=== PATIENT | female | born 1950 | race Caucasian/White ===

== ENCOUNTER 2016-05-10 14:01 | Inpatient (IN) | payer MEDICARE, OTHER ==
[~2016-05-10] VITALS: Ht 167.6 cm; Wt 86.4 kg
[~2016-05-10 14:01] MED LIST: BUPR150T6 PO; GABA300C16 PO; LEVO100T11 PO; LORA1TAB PO; METO100T13 PO; NORC 5-325 PO; SMV40T PO
[2016-05-10] MEDS ORDERED: SOD CHLORIDE 0.9% 1,000 ML IV STA (14:45)
[2016-05-10] MEDS ORDERED: ATOR40TA68 PO (15:05)
[2016-05-10] MEDS ORDERED: HYDR-905 PO (15:05)
[2016-05-10] MEDS ORDERED: VENL150C94 PO (15:05)
[2016-05-10] MEDS ORDERED: AMLO5TAB4 PO (15:06)
[2016-05-10] MEDS ORDERED: ZOLP10TA PO (15:06)
[2016-05-10] MEDS ORDERED: LORA1TAB PO (15:07)
[2016-05-10 15:28] LABS: BASOPHILS % 0.3 % (0.0-2.0); EOSINOPHILS % 0.3 % (0.0-7.0); HEMATOCRIT 42.5 % (37.0-47.0); HEMOGLOBIN 14.3 g/dl (12.0-16.0); LYMPHOCYTES # 0.9 10^3/ul (0.8-2.9); LYMPHOCYTES % 9.4 % (15.0-51.0); MEAN CORPUSCULAR HEMOGLOBIN 32.9 pg (29.0-33.0); MEAN CORPUSCULAR HGB CONC 33.6 g/dl (32.0-37.0); MEAN CORPUSCULAR VOLUME 97.9 fl (82.0-101.0); MEAN PLATELET VOLUME 7.5 fl (7.4-10.4); MONOCYTE # 0.6 10^3/ul (0.3-0.9); NEUTROPHIL # 8.4 10^3/ul (1.6-7.5); PLATELET COUNT 303 10^3/UL (140-440); RED BLOOD COUNT 4.34 10^6/ul (4.20-5.40); RED CELL DISTRIBUTION WIDTH 17.2 % (11.5-14.5)
[2016-05-10 15:29] LABS: CONDITION 1; LH ANALYZER COMMENTS 1
[2016-05-10 15:37] LABS: CHLORIDE 102 mmol/L (97-110); POTASSIUM 4.1 mmol/L (3.5-5.1); SODIUM 143 mmol/L (135-144)
[2016-05-10 15:38] LABS: ADD UMIC YES; URINE BILIRUBIN (Dip) NEGATIVE (NEGATIVE); URINE BLOOD (Dip) NEGATIVE (NEGATIVE); URINE COLOR LT. YELLOW (YELLOW); URINE GLUCOSE (Dip) NEGATIVE (NEGATIVE); URINE KETONES (Dip) NEGATIVE (NEGATIVE); URINE LEUKOCYTE ESTERASE (Dip) TRACE (NEGATIVE); URINE NITRITE (Dip) NEGATIVE (NEGATIVE); URINE TOTAL PROTEIN (Dip) 2+ (NEGATIVE); URINE UROBILINOGEN (Dip) 0.2 E.U./dL (0.1-1.0)
[2016-05-10 15:39] LABS: CREATININE 0.68 mg/dl (0.44-1.00)
[2016-05-10 15:40] LABS: ANION GAP 22 (8-16); BLOOD UREA NITROGEN 13 mg/dl (7-20); CALCIUM 10.4 mg/dl (8.4-10.2); CARBON DIOXIDE 23 mmol/L (21-31); GLUCOSE 145 mg/dl (70-220)
[2016-05-10 15:50] LABS: URINE RBCS 0-2 /HPF (0)
[2016-05-10 15:51] LABS: BACTERIA,URINE RARE; SQUAMOUS EPITHELIAL CELL,UR FEW
[2016-05-10 15:53] LABS: TROPONIN-I < 0.012 ng/ml (0.00-0.12)
[2016-05-10] MEDS ORDERED: ONDANSETRON 4 MG INJ IV PRN (17:30)
[2016-05-10] MEDS ORDERED: ACETAMINOPHEN 325 MG TAB PO PRN (17:30)
--- NOTE | 2016-05-10 17:30 | ERA ---
ER Documentation Chief Complaint Date/Time DATE: 05/10/16 TIME: 17:24 Chief Complaint BIB RA FOR EVAL OF LAC TO TOUNGE. FROM HOME, MODERATE AMOUNT OF BLEEDING HPI 66-year-old female with a history of hypertension, depression, and hypothyroidism brought in by ambulance after having a syncopal event at home. Her sister, she heard a thump. She went into the room and the patient had fallen off of her bed onto her face. She was unresponsive. No seizure activity was noted. She did hear gurgling. There was blood coming out of her mouth. When the ambulance arrived, the patient woke up but was not answering questions. The patient does not remember what happened. She states she was laying down in bed and watching TV, which is the last thing she remembers. She denies any current chest pain or shortness of breath. She states that she has some pain in her mouth, but no other symptoms. She does endorse frequent falling recently. She fell about a week ago and hit the back of her head. She is not sure why she is falling. She complains of right leg pain secondary to previous fall. No focal weakness or numbness. No headache, vision disturbance , chest pain, shortness of breath, abdominal pain, dysuria. ROS All systems reviewed and are negative except as per history of present illness. Medications Home Meds Reported Medications Lorazepam* (Lorazepam*) 1 Mg Tablet, 1 MG PO TID Y for ANXIETY, #60 TAB 05/10/16 Amlodipine Besylate* (Norvasc*) 5 Mg Tablet, 5 MG PO DAILY, TAB 05/10/16 Zolpidem Tartrate* (Ambien*) 10 Mg Tablet, 10 MG PO QHS Y for INSOMNIA, TAB 05/10/16 Atorvastatin* (Atorvastatin*) 40 Mg Tablet, 40 MG PO QHS, #30 TAB 05/10/16 Venlafaxine Hcl* (Venlafaxine Hcl ER*) 150 Mg Cap.er.24h, 150 MG PO DAILY, CAP 05/10/16 Hydrocodone/Acetaminophen ([place] 7.5-325 Tablet) 1 Each Tablet, 1 EACH PO Q6 Y for PAIN, TAB 05/10/16 Metoprolol Succinate* (Toprol XL*) 100 Mg Tab.sr.24h, 100 MG PO DAILY 05/30/13 Levothyroxine Sodium (LEVOTHROID) 100 Mcg Tablet, 88 MCG PO DAILY 05/27/13 Gabapentin* (Gabapentin*) 300 Mg Capsule, 300 MG PO TID 05/27/13 Discontinued Reported Medications Hydrocodone Bit-Acetaminophen* ([place]*) 1 Tab Tab, 1 TAB PO Q4 Y 05/30/13 Bupropion Hcl* (Bupropion XL*) 150 Mg Tab.er.24h, 300 MG PO DAILY 05/30/13 Simvastatin (Simvastatin) 40 Mg Tablet, 40 MG PO HS 05/27/13 Lorazepam* (Lorazepam*) 1 Mg Tablet, 1 MG PO BID Y NEEDED 05/27/13 Allergies Allergies: Coded Allergies: aspirin (Verified Allergy, Intermediate, 05/10/16) naproxen (Verified Allergy, Intermediate, 05/10/16) Penicillins (Verified Allergy, Unknown, 05/10/16) PMhx/Soc History of Surgery: Yes (thyroidectomy,hysterectomy,back sx,kidney stone) Hx Neurological Disorder: Yes Hx Respiratory Disorders: No Hx Cardiac Disorders: Yes (HYPERTENSION) Hx Psychiatric Problems: Yes (DEPRESSION, ANXIETY) Hx Miscellaneous Medical Probl: Yes (CLL,fibromyalgia,depression,anxiety, hypothyroidism,hyperlilidemia,htn,OA) Hx Alcohol Use: No (NO) Hx Substance Use: No Hx Tobacco Use: No Smoking Status: Never smoker FmHx Family History: coronary disease Physical Exam Vitals Vital Signs Date Time Temp Pulse Resp B/P Pulse Ox O2 Delivery O2 Flow Rate FiO2 05/10/16 14:43 115 17 131/103 98 Room Air 05/10/16 14:13 98.4 133 18 133/70 100 Physical Exam Const: No apparent distress, blood noted around mouth Head: Atraumatic Eyes: Normal Conjunctiva, PERRL, EOMI, no nystagmus ENT: Normal External Ears, Nose and Mouth., upper gum anteriorly with laceration, right upper central incisor loose, minimal surrounding bleeding, tongue without injury Neck: Full range of motion. No meningismus. No C-spine tenderness to palpation Resp: Clear to auscultation bilaterally Cardio: Regular rate and rhythm, no murmurs Abd: Soft, non tender, non distended. Normal bowel sounds Skin: No petechiae or rashes. Old ecchymoses noted on right lower extremity Back: No midline or flank tenderness Ext: No cyanosis, or edema. Old ecchymoses on right lower extremity, no deformity Neur: Awake and alert to self and place, unable to tell me the month and the year, strength and sensations intact in all 4 extremities Psych: Normal Mood and Affect Result Diagram: 05/10/16 1508 05/10/16 1508 Results 24 hrs Laboratory Tests Test 05/10/16 15:08 Anion Gap 22 Basophils # 0.010^3/ul Basophils % 0.3% Blood Morphology Comment Blood Urea Nitrogen 13mg/dl Calcium Level 10.4mg/dl Carbon Dioxide Level 23mmol/L Chloride Level 102mmol/L Creatinine 0.68mg/dl Eosinophils # 0.010^3/ul Eosinophils % 0.3% Glucose Level 145mg/dl Hematocrit 42.5% Hemoglobin 14.3g/dl Lymphocytes # 0.910^3/ul Lymphocytes % 9.4% Mean Corpuscular Hemoglobin 32.9pg Mean Corpuscular Hemoglobin Concent 33.6g/dl Mean Corpuscular Volume 97.9fl Mean Platelet Volume 7.5fl Monocytes # 0.610^3/ul Monocytes % 6.0% Neutrophils # 8.410^3/ul Neutrophils % 84.0% Nucleated Red Blood Cells # 0.010^3/ul Nucleated Red Blood Cells % 0.0/100WBC Platelet Count 59226^3/UL Potassium Level 4.1mmol/L Red Blood Count 4.3410^6/ul Red Cell Distribution Width 17.2% Sodium Level 143mmol/L Troponin I < 0.012ng/ml Urine Bacteria RARE Urine Bilirubin NEGATIVE Urine Clarity CLEAR Urine Color LT. YELLOW Urine Glucose NEGATIVE% Urine Hemoglobin NEGATIVE Urine Ketones NEGATIVE Urine Leukocyte Esterase TRACE Urine Microscopic RBC 0-2/HPF Urine Microscopic WBC 5-10/HPF Urine Nitrite NEGATIVE Urine Specific [place] 1.025 Urine Squamous Epithelial Cells FEW Urine Total Protein 2+ Urine Urobilinogen 0.2 E.U./dL Urine pH 7.0 White Blood Count 10.010^3/ul Current Medications Medications (Trade) Dose Ordered Sig/Tasneem Route PRN Reason Start Time Stop Time Status Last Admin Dose Admin Sodium Chloride (NS) 1,000 ml @ 1,000 mls/hr Q1H STAT IV 05/10/16 14:45 05/10/16 15:44 DC 05/10/16 16:07 Ondansetron HCl (Zofran Inj) 4 mg ER BRIDGE PRN IV NAUSEA AND/OR VOMITING 05/10/16 17:30 05/11/16 17:29 Acetaminophen (Tylenol Tab) 650 mg ER BRIDGE PRN PO MILD PAIN/FEVER 05/10/16 17:30 05/11/16 17:29 Procedures/MDM EKG: Rate/Rhythm: Sinus tachycardia at 109 bpm QRS, ST, T-waves: Normal intervals, no changes consistent w/ acute ischemia Impression: No evidence of ischemia or arrhythmia Patient is presenting after a possible syncopal event versus seizure. Vitals were notable for tachycardia, likely secondary to dehydration, however no other vital sign abnormalities. EKG did not show acute ischemia or arrhythmia. Labs did not show any significant abnormalities. She does have a loose tooth on my exam, but no evidence of serious facial fracture. The CT of her head did not show any acute abnormalities per radiology. The CT of her face did not show any fracture in the area of her loose tooth. Given the patient's frequent falls recently and the unknown etiology of her fall today, the patient will need further inpatient monitoring and workup. Accepting Care Team: Current data and ongoing care discussed. Time: Time of admission Primary Provider: lobito Consulting: none Outstanding Data: none Departure Diagnosis: Primary Impression: Syncope and collapse Additional Impression: Tooth injury Qualified Code: S09.93XA - Tooth injury, initial encounter Condition: JOEL Ventura MD May 10, 2016 17:30
[2016-05-10] MEDS ORDERED: HYDROCODONE/APAP (5/325) TAB PO ONE (18:30)
--- NOTE | 2016-05-10 19:18 | RADRPT ---
PROCEDURE: CT Head without. CLINICAL INDICATION: 66-year-old female with syncope. TECHNIQUE: The study was performed utilizing a multi-slice, multidetector CT scanner. Direct spira l 1 mm axial sections were obtained through the head without the use of intravenous contrast materia l. Coronal and sagittal reformats were obtained. The images were reviewed on a PACS workstation. RADIATION DOSE: CTDIvol: 44.8 mGyDLP: 720.2 mGy-cm COMPARISON: 05/27/2013, MRI brain 05/27/2013 FINDINGS: There is no intracranial hemorrhage, extra-axial fluid collection, mass lesion, midline shift or hyd rocephalus. There is mild prominence of the cerebral sulci, lateral and third ventricles. There is mild periventricular and subcortical white matter hypodensity. There is mild arteriosclerotic calc ification of the parasellar internal carotid arteries. The elena-white matter differentiation is pre served. The basal cisterns are patent. The midline structures are intact. There is pneumatization bilateral petrous apices without evidence of inflammatory changes, normal variant. The orbits, jacinto varium and extracranial soft tissues are normal in appearance. The visualized paranasal sinuses, mas toid air cells and middle ear cavities are normally aerated. There is mild hyperostosis frontalis in terna, normal variant. IMPRESSION: 1. No acute intracranial abnormality. No intracranial hemorrhage, extra-axial fluid collection, ma ss lesion or hydrocephalous. 2. Stable mild peripheral and central cerebral volume loss. 3. Stable mild periventricular and subcortical white matter hypodensity, likely related to chronic microangiopathic changes. RPTAT: HGAS .Levon Spencer MD, Date Time Electronically viewed and signed by .Levon Spencer MD, on 05/10/2016 17:03 .S/
--- NOTE | 2016-05-10 19:18 | RADRPT ---
PROCEDURE: CT Maxillofacial without. CLINICAL INDICATION: Syncope. TECHNIQUE: The study was performed utilizing a multi-slice, multidetector CT scanner. Direct spira l 1 mm axial sections were obtained through the maxillofacial region without the use of intravenous contrast material. Coronal and sagittal as well as maximal intensity projection reformations were o btained. The images were reviewed on a PACS workstation. RADIATION DOSE: CTDIvol: 29.5 mGyDLP: 591.3 mGy-cm COMPARISON: No prior studies are available for comparison. FINDINGS: The maxilla, zygomatic arches and ethmoid bone intact. There is possible widening of the bilateral nasal maxillary sutures, concerning for fracture. The paranasal sinuses are normally aerated. The nasal spine of the maxilla is intact. The visualized mandible is normal in appearance. There is no evidence of facial bone fracture. The soft tissues are unremarkable. Limited visualization of the intracranial contents is normal in appearance. The nasopharynx and oropharynx are normal in appear ance. IMPRESSION: 1. Possible widening of the bilateral nasal maxillary sutures, concerning for possible bilateral na tal bone fractures. 2. Otherwise, normal CT of the maxillofacial region. No additional fractures are seen. RPTAT: HGAS .Levon Spencer MD, Date Time Electronically viewed and signed by .Levon Spencer MD, on 05/10/2016 17:05 .S/
--- NOTE | 2016-05-10 19:19 | RADRPT ---
PROCEDURE: XR Chest. CLINICAL INDICATION: Dyspnea TECHNIQUE: Single frontal chest x-ray. COMPARISON: 05/27/2013 FINDINGS: No acute infiltrate, pleural effusion or pneumothorax is identified. Cardiomediastinal silhouette i s within normal limits. The osseous structures are unremarkable. IMPRESSION: 1. Unremarkable chest x-ray. RPTAT: QQ .Kirk Norris MD, MD Date Time Electronically viewed and signed by .Kirk Norris MD, on 05/10/2016 15:37 .R/
[2016-05-10 19:20] VITALS: BP 142/76; PULSE 112; RESP 20
[2016-05-10] MEDS ORDERED: LORAZEPAM 2 MG INJ IV ONE (19:45)
[2016-05-10 19:50] VITALS: BP 200/99; PULSE 120; RESP 20
[2016-05-10] MEDS ORDERED: LORAZEPAM 2 MG INJ ONE (19:54)
[2016-05-10] MEDS ORDERED: SOD CHLORIDE 0.9% 500 ML IV ONE (20:00)
[2016-05-10] MEDS ORDERED: LEVETIRACETAM IV 1,000 MG in DEXTROSE 5% 100 ML IVPB ONE (20:00)
[2016-05-10 20:17] VITALS: PULSE 140
[2016-05-10 20:30] VITALS: Ht 167.6 cm; Wt 86.4 kg
[2016-05-10] MEDS ORDERED: LORAZEPAM 2 MG INJ IV PRN (20:30)
[2016-05-10] MEDS ORDERED: LEVETIRACETAM IV 500 MG in DEXTROSE 5% 100 ML IVPB SCH (21:00)
[2016-05-10] MEDS ORDERED: LEVETIRACETAM IV 1,000 MG in SOD CHLORIDE 0.9% 100 ML IVPB ONE (21:00)
[2016-05-10] MEDS: D5W-0.45 NACL + KCL 10 MEQ 1,000 ML IV SCH (21:59)
[2016-05-10 23:14] VITALS: BP 147/80; RESP 20
[2016-05-11] VITALS (13 sets, daily range): BP systolic 122–167; BP diastolic 78–106; PULSE 72–95; RESP 16–21
[2016-05-11] MEDS: LEVOTHYROXINE 88 MCG TAB PO SCH (05:50)
[2016-05-11 06:25] LABS: EOSINOPHILS % 0.2 % (0.0-7.0); HEMATOCRIT 37.3 % (37.0-47.0); HEMOGLOBIN 12.4 g/dl (12.0-16.0); LYMPHOCYTES # 1.3 10^3/ul (0.8-2.9); LYMPHOCYTES % 13.2 % (15.0-51.0); MEAN CORPUSCULAR HEMOGLOBIN 32.8 pg (29.0-33.0); MEAN CORPUSCULAR HGB CONC 33.3 g/dl (32.0-37.0); MEAN CORPUSCULAR VOLUME 98.6 fl (82.0-101.0); MEAN PLATELET VOLUME 7.6 fl (7.4-10.4); MONOCYTE # 0.8 10^3/ul (0.3-0.9); MONOCYTES % 8.3 % (0.0-11.0); NEUTROPHIL # 7.5 10^3/ul (1.6-7.5); NEUTROPHILS % 78.3 % (39.0-77.0); PLATELET COUNT 286 10^3/UL (140-440); RED BLOOD COUNT 3.79 10^6/ul (4.20-5.40); RED CELL DISTRIBUTION WIDTH 16.7 % (11.5-14.5); UNCORRECTED WBC 9.6 10^3/ul (4.8-10.8); WHITE BLOOD COUNT 9.6 10^3/ul (4.8-10.8)
[2016-05-11] MEDS: D5W-0.45 NACL + KCL 10 MEQ 1,000 ML IV SCH ×2 (06:30→17:28)
[2016-05-11 06:33] LABS: CONDITION 1; LH ANALYZER COMMENTS 1
[2016-05-11 06:42] LABS: ALBUMIN 4.2 g/dl (3.3-4.9)
[2016-05-11 06:43] LABS: POTASSIUM 3.9 mmol/L (3.5-5.1)
[2016-05-11 06:45] LABS: ALBUMIN/GLOBULIN RATIO 1.44; BILIRUBIN,INDIRECT 0.5 mg/dl (0-1.1); BILIRUBIN,TOTAL 0.5 mg/dl (0.2-1.3); CREATININE 0.67 mg/dl (0.44-1.00); TOTAL PROTEIN 7.1 g/dl (6.1-8.1)
[2016-05-11 06:46] LABS: CALCIUM 9.6 mg/dl (8.4-10.2)
[2016-05-11 07:11] LABS: THYROID STIMULATING HORMONE 2.63 MIU/L (0.465-4.680)
[2016-05-11] MEDS: AMLODIPINE 5 MG TAB PO SCH (08:57)
[2016-05-11] MEDS ORDERED: METOPROLOL (XL) 50 MG TAB PO SCH (09:00)
[2016-05-11] MEDS: LEVETIRACETAM IV 500 MG in DEXTROSE 5% 100 ML IVPB SCH ×2 (10:15→20:59)
[2016-05-11] MEDS ORDERED: METOPROLOL (XL) 50 MG TAB PO ONE (13:30)
[2016-05-11] MEDS: HYDROCODONE/APAP (7.5/325) TAB PO PRN ×2 (14:42→17:37)
--- NOTE | 2016-05-11 17:27 | HP ---
DATE OF ADMISSION: 05/10/2016 CHIEF COMPLAINT: Altered mental status. HISTORY OF PRESENT ILLNESS: The patient is a 66-year-old female with multiple medical pro blems including anxiety, additional history of seizures, around 20 years old, has noted some questio nable seizure activity a few weeks ago. The patient has been out of her Ativan, noted some shaking of the body diffusely, which has been brief. No loss of consciousness. On the day of admission, th e patient fell out of bed reportedly heard by her sister. The patient with loss of consciousness, h ad some injury to her lip. Brought to the ER by ambulance. The patient does not recall the events until she was in the ER. The patient is complaining of some frontal headache, some lip pain since t he fall, has had some falls recently and patient is unsure of why. Denies any chest pain, shortness of breath, dizziness, recent cold or flu symptoms, fever, chills, or night sweats. The patient was brought to telemetry floor from the ER and reportedly had a seizure. Rapid response team was lashell agee and she was given Ativan and started on Keppra. The patient currently feels back to her baseline mental status. This patient is not a very good historian. She is unclear of all her medications, b ut says she thinks she has been compliant with them. PAST MEDICAL HISTORY: CLL, fibromyalgia, depression, anxiety, hypothyroidism, hyperlipidemia, osteo arthritis, hypertension. OPERATIONS: Thyroidectomy, hysterectomy, back, kidney stone. MEDICATIONS: 1. Norvasc 5 mg daily. 2. Metoprolol succinate 100 mg daily. 3. Lipitor 40 mg daily. 4. Ativan 1 mg q.8h. p.r.n. 5. Synthroid 88 mcg daily. 6. Effexor 150 mg daily. ALLERGIES: 1. PENICILLIN. 2. ASPIRIN. 3. NAPROXEN. SOCIAL HISTORY: The patient denies any tobacco or alcohol use. She is . FAMILY HISTORY: The patient's father from lung cancer. Mother from CVA. She has a siste r with diabetes and Hodgkin disease. The patient has no children. REVIEW OF SYSTEMS: GENERAL: The patient denies any fever, chills, night sweats, or other general complaints. HEENT: The patient has some mild frontal headache, chipped tooth, and bloody lip from her fall toda y. Otherwise, denies any other HEENT complaints. RESPIRATORY: The patient denies any cough, wheeze, shortness of breath, or other respiratory compla ints. CARDIOVASCULAR: The patient denies any chest pains, palpitations, dizziness, or other cardiovascula r symptoms. GASTROINTESTINAL: The patient denies any abdominal pain, nausea, vomiting, bright red blood per rec amaya, melena, or other GI symptoms. GENITOURINARY: The patient denies any dysuria. She has had some urinary frequency. Denies any oth er symptoms. NEUROLOGIC: As noted in the HPI. PHYSICAL EXAMINATION: VITAL SIGNS: Temperature 98.4, pulse 122, but 102 to 106 on the monitor, blood pressure 153/83, sat uration 98%. GENERAL APPEARANCE: This is an overweight female in no acute distress. She appears nonto xic. She is awake and alert. HEENT: Normocephalic. There is some mild lip trauma, but no other obvious head trauma. Pupils equ al, round, reactive to light. Extraocular movements intact. Oropharynx, there is some dried blood and around her mouth. There is a cut on the inner aspect of the lower lip and a hematoma externally . NECK: Supple. No adenopathy, no bruits. LUNGS: Clear to auscultation. CARDIAC: Slightly tachycardic. It is regular. ABDOMEN: Bowel sounds are present. Abdomen is soft, nontender, nondistended. EXTREMITIES: Without cyanosis, clubbing, or edema. NEUROLOGIC: The patient is alert and oriented x3. She is able to move all 4 extremities symmetrica lly. DATA: White count 10, hemoglobin 14.3, platelets 303. Sodium 143, potassium 4.1, chloride 102, bic arbonate 23, BUN 13, creatinine 0.68, glucose 145. Troponin less than 0.012 x2. Chest x-ray shows no acute disease. Head CT: Chronic microangiopathic periventricular and subcortical white matter c hanges. There are no acute changes. EKG shows sinus tachycardia. IMPRESSION: 1. Altered mental status/seizure. The patient with episode of altered mental status, recently stop ped her Ativan. She did have a witnessed seizure on the floor. Currently, mental status is back to baseline. EEG is pending. The patient currently on Keppra given Ativan. 2. Anxiety. The patient's Ativan resumed. 3. Hypertension. 4. Hypothyroidism. 5. Depression. PLAN: Admit to telemetry. Will continue Keppra. Resume her Ativan p.r.n. Resume outpatient medic ations. IV hydration. Neurology eval. Message left for Dr. Kaplan. Will monitor labs. Dictated By: ANIA DUBOIS/GIBRAN Conf#: [id number] DID#: [id number]
--- NOTE | 2016-05-11 17:30 | RADRPT ---
PROCEDURE: XR right knee. CLINICAL INDICATION: Knee pain TECHNIQUE: AP weightbearing, tunnel and lateral weightbearing views are available for review. COMPARISON: None available FINDINGS: There is mild to moderate osteoarthrosis involving the medial tibial femoral compartment, lateral ti bial femoral compartment and patellofemoral compartment. This is associated with joint space narrowi ng, subchondral sclerosis and osteophytosis. There is otherwise normal mineralization, architecture and alignment. No fractures are identified. No osseous lesions are identified. The soft tissues are unremarkable. There is a small suprapatell ar joint effusion IMPRESSION: Mild to moderate osteoarthrosis involving the medial tibial femoral compartment, lateral tibial femo ral compartment and patellofemoral compartment. Small suprapatellar joint effusion RPTAT: HGDB .Odell Cordon MD, Date Time Electronically viewed and signed by .Odell Cordon MD, on 05/11/2016 17:29 .B/
[2016-05-11] MEDS: LORAZEPAM 1 MG TAB PO PRN (17:37)
[2016-05-12] VITALS (14 sets, daily range): BP systolic 125–183; BP diastolic 73–87; PULSE 65–79; RESP 16–20
[2016-05-12] MEDS: LORAZEPAM 1 MG TAB PO PRN ×2 (05:43→22:14)
[2016-05-12] MEDS: LEVOTHYROXINE 88 MCG TAB PO SCH (05:43)
[2016-05-12 05:55] LABS: BASOPHILS % 0.1 % (0.0-2.0); EOSINOPHILS % 0.5 % (0.0-7.0); HEMATOCRIT 36.5 % (37.0-47.0); HEMOGLOBIN 12.2 g/dl (12.0-16.0); LYMPHOCYTES # 1.1 10^3/ul (0.8-2.9); LYMPHOCYTES % 11.1 % (15.0-51.0); MEAN CORPUSCULAR HEMOGLOBIN 32.9 pg (29.0-33.0); MEAN CORPUSCULAR HGB CONC 33.5 g/dl (32.0-37.0); MEAN CORPUSCULAR VOLUME 98.4 fl (82.0-101.0); MEAN PLATELET VOLUME 7.5 fl (7.4-10.4); MONOCYTE # 0.9 10^3/ul (0.3-0.9); NEUTROPHIL # 7.6 10^3/ul (1.6-7.5); NEUTROPHILS % 79.3 % (39.0-77.0); PLATELET COUNT 265 10^3/UL (140-440); RED BLOOD COUNT 3.71 10^6/ul (4.20-5.40); RED CELL DISTRIBUTION WIDTH 15.7 % (11.5-14.5); UNCORRECTED WBC 9.6 10^3/ul (4.8-10.8); WHITE BLOOD COUNT 9.6 10^3/ul (4.8-10.8)
[2016-05-12 05:58] LABS: CONDITION 1; LH ANALYZER COMMENTS 1
[2016-05-12 06:09] LABS: POTASSIUM 3.8 mmol/L (3.5-5.1)
[2016-05-12 06:12] LABS: CREATININE 0.62 mg/dl (0.44-1.00)
[2016-05-12 06:13] LABS: CALCIUM 9.8 mg/dl (8.4-10.2)
[2016-05-12] MEDS: D5W-0.45 NACL + KCL 10 MEQ 1,000 ML IV SCH ×2 (06:30→22:56)
[2016-05-12] MEDS: LEVETIRACETAM IV 500 MG in DEXTROSE 5% 100 ML IVPB SCH (08:15)
[2016-05-12] MEDS: METOPROLOL (XL) 100 MG TAB PO SCH (08:16)
[2016-05-12] MEDS: AMLODIPINE 5 MG TAB PO SCH (08:16)
[2016-05-12] MEDS: ENOXAPARIN 40 MG/0.4 ML SYG SC SCH (08:21)
[2016-05-12] MEDS ORDERED: LIDOCAINE 1%/EPI (MDV) 20 ML INJ INJ ONE (13:00)
[2016-05-12] MEDS ORDERED: LIDOCAINE 1%/EPI 30 ML INJ INJ ONE (13:00)
--- NOTE | 2016-05-12 13:36 | CONS ---
DATE OF ADMISSION: 05/10/2016 DATE OF CONSULTATION: 05/12/2016 TYPE OF CONSULTATION: Rheumatology. CONSULTING PHYSICIAN: Gustabo Wall MD REQUESTING PHYSICIAN: Hui. REASON FOR CONSULT: Knee pain. HISTORY OF PRESENT ILLNESS: The patient is a 66-year-old female with history of anxiety disorder, s eizure disorder, fibromyalgia, who has been out of Ativan per patient report for the past few weeks and she was not the best historian, but was describing some questionable seizure activity with dif fuse body shaking on day of admission, which was on 05/10/2016. She was reported to have lost consc iousness and falling out of bed by her sister, who then called the ambulance. She was brought into the ER by ambulance. She had some frontal headache and lip pain with an upper lip laceration. She also complained of severe right knee pain. She has had pain in her knees in the past in bilateral k nees. She is followed by ____which a second butler for her fibromyalgia, but also for her oste oarthritis and she has gotten injections into her knees in the past. She states that the last injec tion was at least a year ago of cortisone. She denies chest pain, shortness of breath, fever, chill s, nausea, vomiting, night sweats, any rash or any other any other joint pain at this time. She say s that the right knee pain is so severe she has problems putting weight on it. She did have a witne ssed seizure on the telemetry floor after admission, and she was given Ativan and started on Keppra. She also had x-rays of her knees done that show tri-compartmental osteoarthritis. She had a CT of the maxillofacial area that was negative for fracture. She had a chest x-ray that was negative for any acute process and a brain CT that was negative for any acute process. PAST MEDICAL HISTORY: As stated above, significant for fibromyalgia, history of chronic lymphocytic leukemia, depression, anxiety, hypothyroidism, hyperlipidemia, osteoarthritis, hypertension and sei zure disorder. PAST SURGICAL HISTORY: Thyroidectomy, hysterectomy, lumbar surgery and a kidney stone removal. ALLERGIES: PENICILLIN, ASPIRIN, NAPROXEN. SOCIAL HISTORY: She denies any tobacco or alcohol use. She is . She lives with her sister . FAMILY HISTORY: Patient's father from lung cancer. Mother from CVA. Sister with diabete s and Hodgkins disease. She has no children. No known autoimmune disease. MEDICATIONS 1. Metoprolol 100 mg daily. 2. Lovenox 40 mg subQ. 3. [place] p.r.n. 4. Norvasc 5 mg. 5. Synthroid 88 mcg. 6. Ativan 1 mg p.r.n. 7. Keppra. PHYSICAL EXAMINATION: VITAL SIGNS: Show temperature 99.0, pulse 69, BP 150/73, respirations 20, 98% on room air currently . GENERAL: Obese female in no acute distress, pleasant, alert and awake. HEENT: Small laceration in the right upper lip. Extraocular movements are intact. Oropharynx fredrick r. NECK: Supple, range of motion intact. LUNGS: Clear to auscultation. CARDIOVASCULAR: S1, S2. Regular rate and rhythm. ABDOMEN: Soft, nontender. EXTREMITIES: No cyanosis, clubbing, or edema. No synovitis, right knee with some tenderness at the medial aspect with painless range of motion. SKIN: No visible rashes. LABORATORY DATA: Noted to include white count 9.6, hemoglobin 12.2, hematocrit 36.5, platelet count 265. Sodium 140, potassium 3.8, chloride 101, bicarbonate 26, BUN 10, creatinine 0.62, glucose 13 3, calcium 9.8, total bilirubin 0.5, direct bilirubin 0, indirect bilirubin 0.5, AST 28, ALT 29, alk lg phosphatase 72. Troponins were negative x3. Albumin 4.2. TSH 2.6, free T4 0.96. Urines wer e negative. Urine culture was negative. REVIEW OF SYSTEMS: As per the HPI. IMPRESSION AND PLAN: A 66-year-old female with history of fibromyalgia, osteoarthritis, seizure dis order, hypothyroidism, here after a loss of consciousness, likely from a seizure, now being treated for procedures and well controlled, but also having some increased right knee pain with possible tra harvey to the right knee after the loss of consciousness when she fell from her bed. 1. Seizure disorder well managed by primary team. 2. Right knee pain, likely flare of her osteoarthritis. After getting an informed consent for the pain from the patient for a right knee Depo-Medrol injection with the risks including, but not limit ed to, pain, infection, bleeding, and local trauma to the site, patient agreed to have a right knee Depo-Medrol injection and signed the consent form. Therefore, under aseptic technique with all side effects and this was discussed in that she was understood, she was given 40 mg of Depo-Medrol with 1% Xylocaine, 1 mL of 1% Xylocaine in her right knee. There were no complications. The patient neida erated the procedure well with minimal pain. I would continue pain medication p.r.n. as needed. Pl ease do not hesitate to call with any further questions or concerns. I would like to thank Dr. Kota blackmon for having us participate in this patient's care. Dictated By: GUSTABO LAKHANI/GIBRAN Conf#: [id number] DID#: [id number]
[2016-05-12] MEDS ORDERED: METHYLPREDNISOLONE ACET 40 MG/ML 1 ML IU ONE (14:00)
--- NOTE | 2016-05-12 19:54 | CONS ---
DATE OF ADMISSION: 05/10/2016 DATE OF CONSULTATION: TYPE OF CONSULTATION: Neurology. Thank you, Dr. Ames, for your kind referral for evaluation of possible seizure. HISTORY OF PRESENT ILLNESS: The patient is a 66-year-old lady with past medical history of hyperten adriana, dyslipidemia, depression, anxiety as well as a remote history of seizures. According to histo ry and physical examination note, patient had some questionable seizure activity a few weeks ago. A t that time, patient had been out of her Ativan. She takes 1 mg of Ativan 3 times a day, but had occ asional not rhythmical jerk-like movements of the whole body, but with no loss of consciousness. At this time patient was admitted because she fell out of bed on her face with loss of consciousness. Her sister heard sound of a fall and according to ER notes, the patient's sister did not witness any seizure activity. The patient had a laceration of the lip and possibly tongue bite. Patient was put on Keppra 500 mg twice daily. She stated that she used to have a seizure disorder i n her 20s, she used to take Dilantin, used to see Dr. Rios in the past, but not recently. She has been off Dilantin for decades. She drives. ALLERGIES: SHE IS ALLERGIC TO PENICILLIN, ASPIRIN AND NAPROSYN. Currently she is on: 1. Metoprolol. 2. Lovenox. 3. Morris. 4. Keppra 500 twice daily. 5. Norvasc. 6. Synthroid 91 mcg 3 times a day. At this time, the patient did not run out of Ativan, so there was no withdrawal. SOCIAL HISTORY: No alcohol, tobacco, drug use. FAMILY HISTORY: Noncontributory. REVIEW OF SYSTEMS: All pertinent positives included in the above history of present illness. PHYSICAL EXAMINATION: VITAL SIGNS: Temperature 99.0, 74 pulse, 20 respiration, 140/78 blood pressure. GENERAL: She is not in acute distress, lying in bed. HEENT: Normocephalic, atraumatic. Lip laceration noticed. No meningeal signs. LUNGS: Clear to auscultation bilaterally. CARDIAC: Normal cardiac rhythm and sounds. ABDOMEN: Soft, nontender. EXTREMITIES: No cyanosis, clubbing or edema. NEUROLOGIC: She is awake, alert, and oriented x3 with fluent speech. Cranial nerve examination daxa ws intact visual naqvi bilaterally. Pupils round, reactive to light from 3 to 2 mm bilaterally. E xtraocular movements intact without nystagmus. Symmetrical face. Preserved facial strength and sen sation. Tongue is in midline. Palate elevates symmetrically. Motor strength examination preserved in all extremities. Normal bulk, tone, and strength. Sensory examination intact to light touch an d pain. Deep tendon reflexes 2+ throughout. Downgoing toes bilaterally. Coordination preserved on [id number]-bt-[id number] testing. No dysmetria or tremor. Gait was not assessed. IMPRESSION: Status post possible seizure. Remote history of seizure disorder. Patient stated that she was asleep or at least she does not have any recollection of the episodes or did not describe any preceding sensation of aura. She has no history of blanking out episodes. I think it is reasonable to continue Keppra 500 twice daily. The patient was advised not to drive. Will obtain EEG. CAT scan of the head did not show any acute abnormality, white matter disease and atrophy. CAT scan of the facial bones showed possible nasal bone fracture. LABORATORY DATA: Essentially normal with exception of neutrophil count 84% on admission with normal WBCs and trace of leukocyte esterase, 5-10 WBCs on urinalysis. Thank you very much for this interesting consultation. Dictated By: RADHA FLOWERS/GIBRAN Conf#: [id number] DID#: [id number]
[2016-05-12] MEDS: LEVETIRACETAM 500 MG TAB PO SCH (21:20)
[2016-05-12] MEDS: HYDROCODONE/APAP (7.5/325) TAB PO PRN (21:20)
[2016-05-13] VITALS (13 sets, daily range): BP systolic 123–154; BP diastolic 64–85; PULSE 70–75; RESP 16–75
[2016-05-13] MEDS: LEVOTHYROXINE 88 MCG TAB PO SCH (05:19)
[2016-05-13 06:35] LABS: POTASSIUM 4.5 mmol/L (3.5-5.1)
[2016-05-13 06:37] LABS: CREATININE 0.59 mg/dl (0.44-1.00)
[2016-05-13] MEDS: LEVETIRACETAM 500 MG TAB PO SCH ×2 (08:30→20:10)
[2016-05-13] MEDS: METOPROLOL (XL) 100 MG TAB PO SCH (08:32)
[2016-05-13] MEDS: ENOXAPARIN 40 MG/0.4 ML SYG SC SCH (08:33)
[2016-05-13] MEDS: AMLODIPINE 5 MG TAB PO SCH (08:39)
[2016-05-13] MEDS: D5W-0.45 NACL + KCL 10 MEQ 1,000 ML IV SCH (11:14)
[2016-05-13] MEDS: LORAZEPAM 1 MG TAB PO PRN ×2 (11:22→21:11)
--- NOTE | 2016-05-13 13:32 | CONS ---
Date/Time of Note Date/Time of Note DATE: 05/13/16 TIME: 13:17 Consult Date/Type/Reason Admit Date/Time May 13, 2016 at 11:09 Initial Consult Date May 12, 2016 Type of Consultation: Rheumatology F/U Subjective Patient's knee pain has improved Objective General alert and oriented 3. Obese HEENT: NCAT EOMI CV S1-S2 regular rate and rhythm Respiratory CTA-B ABD soft nontender EXT no clubbing cyanosis or edema. Right knee with increased range of motion no pain on palpation. Vital Signs Date Time Temp Pulse Resp B/P Pulse Ox O2 Delivery O2 Flow Rate FiO2 05/13/16 12:26 74 05/13/16 11:48 98.0 154/85 92 05/12/16 21:00 Nasal Cannula 2.0 Intake and Output 05/12/16 05/12/16 05/13/16 15:00 23:00 07:00 Intake Total 240 ml 760 ml 970 ml Output Total 1400 ml 850 ml Balance 240 ml -640 ml 120 ml Results/Medications Result Diagram: 05/12/16 0510 05/13/16 0500 Results 24 hrs Laboratory Tests Test 05/13/16 05:00 Anion Gap 19 H Blood Urea Nitrogen 11 Calcium Level 11.0 H Carbon Dioxide Level 29 Chloride Level 96 L Creatinine 0.59 Glucose Level 158 Potassium Level 4.5 Sodium Level 139 Medications Current Medications Potassium Chloride/Dextrose/ Sod Cl (D5-1/2ns + KCl 10 Meq) 1,000 ml @ 70 mls/ hr [id number] IV Last administered on 05/12/16 22:56; Admin Dose 70 MLS/HR; Start 05/10/16 at 20:30 Lorazepam (Ativan) 1 mg Q8 PRN PO anxiety Last administered on 05/13/16 11:22; Admin Dose 1 MG; Start 05/10/16 at 23:00 Levothyroxine Sodium (Synthroid) 88 mcg DAILY@06 PO Last administered on 05:19; Admin Dose 88 MCG; Start 05/11/16 at 06:00 Amlodipine Besylate (Norvasc) 5 mg DAILY PO Last administered on 05/13/16 08:39 ; Admin Dose 5 MG; Start 05/11/16 at 09:00 Acetaminophen/ Hydrocodone Bitart ([place] (7.5-325)) 1 tab Q6H PRN PO PAIN Last administered on 05/12/16 21:20; Admin Dose 1 TAB; Start 05/11/16 at 13:00 Metoprolol Succinate (Toprol Xl) 100 mg DAILY PO Last administered on 05/13/16 08:32; Admin Dose 100 MG; Start 05/12/16 at 09:00 Enoxaparin Sodium (Lovenox) 40 mg DAILY SC Last administered on 05/13/16 08:33 ; Admin Dose 40 MG; Start 05/12/16 at 09:00 Levetiracetam (Keppra) 500 mg BID PO Last administered on 05/13/16 08:30; Admin Dose 500 MG; Start 05/12/16 at 21:00 Clonidine (Catapres) 0.1 mg Q12 PRN PO systolic BP >170; Start 05/12/16 at 21:00 Ciprofloxacin (Cipro) 250 mg BID@06,18 PO ; Start 05/13/16 at 18:00 Assessment/Plan Chief Complaint/Hosp Course Assessment and plan: 66-year-old female with anxiety seizure disorder fibromyalgia osteoarthritis here with a recent seizure having some right knee pain status post 40 mg Depo-Medrol injection into her right knee on May 12 now with significant improvement and states that she has had no pain since the injection. Please call with any further questions or concerns thank you Problems: EDUIN LANZA MD May 13, 2016 13:28
[2016-05-13] MEDS: CIPROFLOXACIN 250 MG TAB PO SCH (17:33)
[2016-05-13] MEDS: HYDROCODONE/APAP (7.5/325) TAB PO PRN (20:10)
--- NOTE | 2016-05-13 21:54 | SP ---
DATE OF PROCEDURE: 05/13/2016 NAME OF PROCEDURE: Electroencephalogram. HISTORY: This is a 66-year-old woman with a history of seizure, who was admitted with altered menta l status. CURRENT MEDICATIONS: 1. Toprol. 2. Keppra. 3. Norvasc. 4. Synthroid. 5. Ativan. PROCEDURE: Utilizing a 16-channel EEG machine, cap scalp electrodes were applied in accordance with International 10-20 system. Kdaeo-ly-paxky, kjoul-gd-nex montages were displayed. Electrical impe dances were measured and reported. DESCRIPTION: During the resting state, posterior dominant rhythm of about 7 to 8 Hz were seen with bifrontal slowing in the range of 6 to 7 Hz. Photic stimulation and hyperventilation were not perfo rmed. There was no focal lateralizing or epileptiform discharge identified. INTERPRETATION: This is an abnormal EEG because of presence of mild generalized bihemispheric backg round slowing consistent with encephalopathy. Please correlate these findings with the patient's cl inical picture. Dictated By: JOE CANCINO/GIBRAN Conf#: [id number] DID#: [id number]
[2016-05-14] VITALS (11 sets, daily range): BP systolic 119–140; BP diastolic 58–76; PULSE 60–76; RESP 18–20
[2016-05-14] MEDS: D5W-0.45 NACL + KCL 10 MEQ 1,000 ML IV SCH (03:10)
[2016-05-14] MEDS: CIPROFLOXACIN 250 MG TAB PO SCH ×2 (06:03→17:55)
[2016-05-14] MEDS: LEVOTHYROXINE 88 MCG TAB PO SCH (06:03)
[2016-05-14 08:16] LABS: POTASSIUM 4.1 mmol/L (3.5-5.1)
[2016-05-14 08:19] LABS: CREATININE 0.63 mg/dl (0.44-1.00)
[2016-05-14 08:20] LABS: CALCIUM 10.1 mg/dl (8.4-10.2)
[2016-05-14] MEDS: LEVETIRACETAM 500 MG TAB PO SCH ×2 (08:39→20:21)
[2016-05-14] MEDS: METOPROLOL (XL) 100 MG TAB PO SCH (08:40)
[2016-05-14] MEDS: ENOXAPARIN 40 MG/0.4 ML SYG SC SCH (08:42)
[2016-05-14] MEDS: AMLODIPINE 5 MG TAB PO SCH (08:46)
--- NOTE | 2016-05-14 13:09 | CONS ---
Date/Time of Note Date/Time of Note DATE: 05/14/16 TIME: 13:02 Consult Date/Type/Reason Admit Date/Time May 13, 2016 at 11:09 Initial Consult Date May 12, 2016 Type of Consultation: Rheumatology F/U Subjective Continues to be pain-free in the right knee and denies any other joint pain at this time Objective GEN: A &O NAD Obese Female, Pleasant HEENT: NCAT EOMI CV: S1 S2 RRR RESP: CTA-B ABD: S NT EXT: No c/c/e MS: Right knee without TTP. YAEL, no pain with ranging Vital Signs Date Time Temp Pulse Resp B/P Pulse Ox O2 Delivery O2 Flow Rate FiO2 05/14/16 12:32 98.0 75 18 133/75 98 05/14/16 09:00 Nasal Cannula 2.0 Intake and Output 05/13/16 05/13/16 05/14/16 15:00 23:00 07:00 Intake Total 240 ml 960 ml 1210 ml Output Total 800 ml 1250 ml Balance 240 ml 160 ml -40 ml Results/Medications Result Diagram: 05/12/16 0510 05/14/16 0618 Results 24 hrs Laboratory Tests Test 05/14/16 06:18 Anion Gap 22 H Blood Urea Nitrogen 15 Calcium Level 10.1 Carbon Dioxide Level 25 Chloride Level 101 Creatinine 0.63 Glucose Level 123 Potassium Level 4.1 Sodium Level 144 Medications Current Medications Potassium Chloride/Dextrose/ Sod Cl (D5-1/2ns + KCl 10 Meq) 1,000 ml @ 70 mls/ hr [id number] IV Last administered on 05/14/16 03:10; Admin Dose 70 MLS/HR; Start 05/10/16 at 20:30 Lorazepam (Ativan) 1 mg Q8 PRN PO anxiety Last administered on 05/13/16 21:11; Admin Dose 1 MG; Start 05/10/16 at 23:00 Levothyroxine Sodium (Synthroid) 88 mcg DAILY@06 PO Last administered on 06:03; Admin Dose 88 MCG; Start 05/11/16 at 06:00 Amlodipine Besylate (Norvasc) 5 mg DAILY PO Last administered on 05/14/16 08:46 ; Admin Dose 5 MG; Start 05/11/16 at 09:00 Acetaminophen/ Hydrocodone Bitart ([place] (7.5325)) 1 tab Q6H PRN PO PAIN Last administered on 05/13/16 20:10; Admin Dose 1 TAB; Start 05/11/16 at 13:00 Metoprolol Succinate (Toprol Xl) 100 mg DAILY PO Last administered on 05/14/16 08:40; Admin Dose 100 MG; Start 05/12/16 at 09:00 Enoxaparin Sodium (Lovenox) 40 mg DAILY SC Last administered on 05/14/16 08:42 ; Admin Dose 40 MG; Start 05/12/16 at 09:00 Levetiracetam (Keppra) 500 mg BID PO Last administered on 05/14/16 08:39; Admin Dose 500 MG; Start 05/12/16 at 21:00 Clonidine (Catapres) 0.1 mg Q12 PRN PO systolic BP >170; Start 05/12/16 at 21:00 Ciprofloxacin (Cipro) 250 mg BID@,18 PO Last administered on 05/14/16 06:03; Admin Dose 250 MG; Start 05/13/16 at 18:00 Assessment/Plan Chief Complaint/Hosp Course Assessment and plan: 66-year-old female with anxiety seizure disorder fibromyalgia osteoarthritis here with a recent seizure having some right knee pain 1) SZ DO- being followed by Neuro and had EEG today that was non-diagnostic 2) Rt Knee Pain: status post 40 mg Depo-Medrol injection into her right knee on May 12 now with significant improvement and states that she has had no pain since the injection. Pain medication as need Please call with any further questions or concerns thank you Problems: EDUIN LANZA MD May 14, 2016 13:09
--- NOTE | 2016-05-14 13:59 | PN ---
Date/Time of Note Date/Time of Note DATE: 05/14/16 TIME: 13:47 Assessment/Plan VTE Prophylaxis VTE Prophylaxis Intervention: LMWH Lines/Catheters IV Catheter Type (from Nrs): Peripheral IV Urinary Cath still in place: No Assessment/Plan Problems: (1) Seizure Comment: no further episodes. On keppra and ativan. EEG no sz activity, but findings consistent with encephalopathy. Pt at baseline mental status. Transfer to med surg. D/c [place]. Await further neuro recommendations. (2) Knee pain, right Comment: improved after injection by rheumatology. Ambulating with PT. (3) Hypertension (4) Anxiety Subjective 24 Hr Interval Summary Free Text/Dictation Pt feeling pretty good. Tolerating soft diet. No confusion or loc/sz activity. Knee much better able to do some work with PT. No cp, sob, dizziness , urinary sx. Exam/Review of Systems Vital Signs Vitals Vital Signs Date Time Temp Pulse Resp B/P Pulse Ox O2 Delivery O2 Flow Rate FiO2 05/14/16 12:32 98.0 75 18 133/75 98 05/14/16 09:00 Nasal Cannula 2.0 Intake and Output 05/13/16 05/13/16 05/14/16 15:00 23:00 07:00 Intake Total 240 ml 960 ml 1210 ml Output Total 800 ml 1250 ml Balance 240 ml 160 ml -40 ml Exam gen- NAD, nontoxic Lungs- CTA Heart- Regular rate and rhythm. Abdomen- bowel sounds present, soft, nontender. Extremities- no edema. Results Result Diagram: 05/12/16 0510 05/14/16 0618 Results 24 hrs Laboratory Tests Test 05/14/16 06:18 Anion Gap 22 H Blood Urea Nitrogen 15 Calcium Level 10.1 Carbon Dioxide Level 25 Chloride Level 101 Creatinine 0.63 Glucose Level 123 Potassium Level 4.1 Sodium Level 144 Medications Medications Current Medications Potassium Chloride/Dextrose/ Sod Cl (D5-1/2ns + KCl 10 Meq) 1,000 ml @ 70 mls/ hr [id number] IV Last administered on 05/14/16 03:10; Admin Dose 70 MLS/HR; Start 05/10/16 at 20:30 Lorazepam (Ativan) 1 mg Q8 PRN PO anxiety Last administered on 05/13/16 21:11; Admin Dose 1 MG; Start 05/10/16 at 23:00 Levothyroxine Sodium (Synthroid) 88 mcg DAILY@06 PO Last administered on 06:03; Admin Dose 88 MCG; Start 05/11/16 at 06:00 Amlodipine Besylate (Norvasc) 5 mg DAILY PO Last administered on 05/14/16 08:46 ; Admin Dose 5 MG; Start 05/11/16 at 09:00 Acetaminophen/ Hydrocodone Bitart ([place] (7.5-325)) 1 tab Q6H PRN PO PAIN Last administered on 05/13/16 20:10; Admin Dose 1 TAB; Start 05/11/16 at 13:00 Metoprolol Succinate (Toprol Xl) 100 mg DAILY PO Last administered on 05/14/16 08:40; Admin Dose 100 MG; Start 05/12/16 at 09:00 Enoxaparin Sodium (Lovenox) 40 mg DAILY SC Last administered on 05/14/16 08:42 ; Admin Dose 40 MG; Start 05/12/16 at 09:00 Levetiracetam (Keppra) 500 mg BID PO Last administered on 05/14/16 08:39; Admin Dose 500 MG; Start 05/12/16 at 21:00 Clonidine (Catapres) 0.1 mg Q12 PRN PO systolic BP >170; Start 05/12/16 at 21:00 Ciprofloxacin (Cipro) 250 mg BID@,18 PO Last administered on 05/14/16 06:03; Admin Dose 250 MG; Start 05/13/16 at 18:00 ANIA CALLE MD May 14, 2016 13:59
[2016-05-14] MEDS: LORAZEPAM 1 MG TAB PO PRN (20:21)
[2016-05-15 00:40] VITALS: BP 108/56; PULSE 75; RESP 18
[2016-05-15] MEDS: CIPROFLOXACIN 250 MG TAB PO SCH (05:37)
[2016-05-15] MEDS: LEVOTHYROXINE 88 MCG TAB PO SCH (05:37)
[2016-05-15 07:35] VITALS: BP 130/69; RESP 18
[2016-05-15] MEDS: AMLODIPINE 5 MG TAB PO SCH (09:32)
[2016-05-15] MEDS: LEVETIRACETAM 500 MG TAB PO SCH (09:32)
[2016-05-15] MEDS: ENOXAPARIN 40 MG/0.4 ML SYG SC SCH (09:33)
[2016-05-15] MEDS: METOPROLOL (XL) 100 MG TAB PO SCH (13:08)
--- NOTE | 2016-05-15 13:25 | PN ---
Date/Time of Note Date/Time of Note DATE: 05/15/16 TIME: 13:16 Assessment/Plan VTE Prophylaxis VTE Prophylaxis Intervention: LMWH Lines/Catheters IV Catheter Type (from Nrs): Sal[place] Lock Urinary Cath still in place: No Assessment/Plan Assessment/Plan loc/sz- no further episodes on keppra. Neuro ok for d/c. UTI- on cipro OA rt knee HTN anxiety d/c pt home meds keppra 500mg bid, cipro 250mg bid x3days more, ativan 1mg q8 prn, norvasc 5mg daily, metoprolol 100mg daily, lipitor 40mg daily, synthroid 88mcg daily, effexor 150mg daily home health and PT - pt has walker at home f/u with me next week, with Dr. Arenas in 1 month. Subjective 24 Hr Interval Summary Free Text/Dictation Pt feeling well, anxious to go home. Declines snf/rehab feels comfortable going home okay with home health, PT. No further episodes of loc/sz. No cp, sob, abd pain. I spoke with Dr. Arenas and he is okay with d/c home on keppra with f/u in 1month. Exam/Review of Systems Vital Signs Vitals Vital Signs Date Time Temp Pulse Resp B/P Pulse Ox O2 Delivery O2 Flow Rate FiO2 05/15/16 07:35 98.2 76 18 130/69 98 05/15/16 00:40 Room Air 05/14/16 09:00 2.0 Intake and Output 05/14/16 05/14/16 05/15/16 15:00 23:00 07:00 Intake Total 240 ml 860 ml 240 ml Output Total 800 ml Balance 240 ml 60 ml 240 ml Exam gen- NAD, nontoxic lungs- CTA heart- RRR. abd- +BS, soft, NT. ext- no cce. Results Result Diagram: 05/12/16 0510 05/14/16 0618 Medications Medications Current Medications Lorazepam (Ativan) 1 mg Q8 PRN PO anxiety Last administered on 05/14/16 20:21; Admin Dose 1 MG; Start 05/10/16 at 23:00 Levothyroxine Sodium (Synthroid) 88 mcg DAILY@06 PO Last administered on 05:37; Admin Dose 88 MCG; Start 05/11/16 at 06:00 Amlodipine Besylate (Norvasc) 5 mg DAILY PO Last administered on 05/15/16 09:32 ; Admin Dose 5 MG; Start 05/11/16 at 09:00 Acetaminophen/ Hydrocodone Bitart ([place] (7.5-325)) 1 tab Q6H PRN PO PAIN Last administered on 05/13/16 20:10; Admin Dose 1 TAB; Start 05/11/16 at 13:00 Metoprolol Succinate (Toprol Xl) 100 mg DAILY PO Last administered on 05/15/16 13:08; Admin Dose 100 MG; Start 05/12/16 at 09:00 Enoxaparin Sodium (Lovenox) 40 mg DAILY SC Last administered on 05/15/16 09:33 ; Admin Dose 40 MG; Start 05/12/16 at 09:00 Levetiracetam (Keppra) 500 mg BID PO Last administered on 05/15/16 09:32; Admin Dose 500 MG; Start 05/12/16 at 21:00 Clonidine (Catapres) 0.1 mg Q12 PRN PO systolic BP >170; Start 05/12/16 at 21:00 Ciprofloxacin (Cipro) 250 mg BID@18 PO Last administered on 05/15/16 05:37; Admin Dose 250 MG; Start 05/13/16 at 18:00 ANIA CALLE MD May 15, 2016 13:25
--- NOTE | 2016-05-15 13:28 | PDOCDIS ---
Discharge Instructions CONDITION Patient Condition: Fair HOME CARE INSTRUCTIONS: Special Diet: mechanical soft ACTIVITY: Activity Restrictions: Do not Drive FOLLOW UP/APPOINTMENTS Appointments f/u with Dr. Calle in 1 week, with Dr. Arenas in 1 month. ANIA CALLE MD May 15, 2016 13:28
[2016-05-15] MEDS ORDERED: LEVE500T8 PO (13:35)
[2016-05-15] MEDS ORDERED: CIPR-193 PO (13:35)
--- NOTE | 2016-05-16 07:38 | DS ---
DATE OF ADMISSION: 05/13/2016 DATE OF DISCHARGE: 05/15/2016 DISCHARGE DIAGNOSES: 1. Loss of consciousness/seizure. 2. Anxiety. 3. Hypertension. 4. Right knee pain/osteoarthritis. 5. Urinary tract infection. PROCEDURES: 1. Head CT scan. 2. EEG. 3. Injection, right knee. CONSULTANTS: Neurology, Dr. RADHA ARENAS; rheumatology, Dr. EDUIN WALL . HISTORY OF PRESENT ILLNESS: The patient is a 66-year-old female with multiple medical pro blems including anxiety, dyspnea, history of seizure around the age of 20. She noted some questiona ble seizure activity over the last few weeks. The patient has been out of her Ativan and noted some shaking of her body diffusely which has been brief. No loss of consciousness. On the day of admissi on, the patient fell out of bed reportedly heard by her sister in another room. Patient had a loss of consciousness, an injury to her lip and her tooth. She was brought to the ER by ambulance. The patient does not recall the events until she was in the ER. She did have some frontal headaches and lip pain since the fall. She has noted some falls recently and the patient is unsure why. She adrien es any chest pain, shortness of breath, dizziness, recent cold or flu symptoms, fever, chills, or ni ght sweats. The patient was admitted and brought to the telemetry floor. The patient reportedly had a seizure and rapid response team was called. The patient was given Ativan and started on Keppra. The patient returned back to her baseline mental status. The patient is a poor historian. PAST MEDICAL HISTORY: CLL, fibromyalgia, depression, anxiety, hypothyroidism, hyperlipidemia, osteoa rthritis, hypertension, remote history of seizures. PHYSICAL EXAMINATION ON ADMISSION: VITAL SIGNS: Notable for temperature 98.4, pulse 122, 102 to 106 on the monitor, blood pressure 153 /83, sats 98%. GENERAL APPEARANCE: Patient was in no acute distress. She appeared nontoxic. She was awake and al ert. HEENT: Normocephalic. There is some mild lip trauma of the lower lip. No other obvious head traum a. Pupils equal, round, and reactive to light. Extraocular movements were intact. Oropharynx: There is some dried blood around her mouth. There is a cut on the inner aspect of her lo wer lip with hematoma externally. LUNGS: Clear to auscultation. CARDIAC: Slight tachycardia but regular. EXTREMITIES: Without cyanosis, clubbing, or edema. NEUROLOGIC: The patient was alert and oriented x3. Able to move all 4 extremities symmetrically. DATA: On admission, white count was 10, hemoglobin 14. Sodium 143, potassium 4.1, BUN 13, creatini ne 0.68, glucose 145. Troponin less than 0.012. Chest x-ray: No acute disease. Head CT: Chronic microangiopathic periventricular subcortical white matter changes, no acute changes. EKG showed sinus tachycardia. HOSPITAL COURSE: As follows: 1. Loss of consciousness/ seizure. Patient with episode of altered mental status after recently st opping her Ativan. She had a witnessed seizure when admitted to the floor. The patient was given IV Ativan and started on Keppra. The patient had an EEG which showed no obvious seizure focus, but did show some diffuse background slowing. The patient was seen in neurologic consultation by Dr. Juliane lea who recommended continuing Keppra with outpatient followup. 2. Hypertension. Blood pressure reasonably controlled during hospitalization once she was resumed on her outpatient regimen. 3. Osteoarthritis, right knee. The patient with pain and difficulty ambulating seen in rheumatolog ic consultation by Dr. Wall, who injected the right knee with significant dramatic improvement. The patient was started on physical therapy and was refusing rehab or SNF placement and desired to g o home with home health and physical therapy. 4. Urinary tract infection. Patient with culture positive, started on Cipro, otherwise asymptomatic . 5. Anxiety. The patient was resumed on her Ativan which she will continue as an outpatient. DISPOSITION: Discharged the patient home with home health and physical therapy. The patient was ins tructed not to drive. DIET: Low cholesterol, low sodium. CONDITION: Fair. MEDICATIONS 1. Cipro 250 mg b.i.d. for 3 more days. 2. Keppra 500 mg b.i.d. 3. Metoprolol succinate 100 mg daily. 4. [place] 1 tablet p.r.n. 5. Amlodipine 5 mg daily. 6. Synthroid 100 mcg daily. 7. Ativan 1 mg q.8h. p.r.n. FOLLOWUP: The patient is to follow up with me in [address] Arenas in 1 month. Dictated By: ANIA DUBOIS/GIBRAN Conf#: [id number] DID#: [id number]
== END 2016-05-15 16:15 | disposition home health service (06) | DRG 101 ==
LOC: E/R 14:01 → TEL 17:17 → INTOOBSV 17:17 → TEL 05-13 05:42 → OBSVTOIN 05-13 11:09 → PP2 05-15 00:24
PROVIDERS: ADMIT Internal Medicine; ATTEND Internal Medicine
DX: G40.909 Epilepsy, unspecified, not intractable, without status epilepticus (principal); N39.0 Urinary tract infection, site not specified; I10 Essential (primary) hypertension; F32.9 Major depressive disorder, single episode, unspecified; E78.5 Hyperlipidemia, unspecified; F41.9 Anxiety disorder, unspecified; M79.7 Fibromyalgia; E03.9 Hypothyroidism, unspecified; M25.561 Pain in right knee; B96.20 Unspecified Escherichia coli [E. coli] as the cause of diseases classified elsewhere; S01.511A Laceration without foreign body of lip, initial encounter; W06.XXXA Fall from bed, initial encounter; Y93.89 Activity, other specified; Y92.013 Bedroom of single-family (private) house as the place of occurrence of the external cause; Z88.0 Allergy status to penicillin; Z85.79 Personal history of other malignant neoplasms of lymphoid, hematopoietic and related tissues
CPT/HCPCS: 36415; 70450; 70486; 71010; 73562; 80048; 80053; 81001; 81003; 82962; 84439; 84443; 84484; 85025; 87086; 92526; 92610; 93005; 95819; 97110; 97163; 97530; 99217; G0378; J1030; J1650; J1953; J2060; J3480; J7030; J7040

== ENCOUNTER 2017-07-24 09:36 | Inpatient (IN) | END 2017-07-30 16:35 | disposition home or self-care (01) | DRG 101 ==

== ENCOUNTER 2018-01-14 00:20 | Inpatient (IN) | END 2018-01-19 12:20 | disposition home or self-care (01) | DRG 101 ==

== ENCOUNTER 2018-05-30 17:28 | Emergency (ER) | payer MEDICARE, OTHER ==
[~2018-05-30] VITALS: Wt 91.0 kg
[~2018-05-30 17:28] MED LIST changes: +AMLO5TAB4 PO; +ATOR40TA68 PO; -BUPR150T6 PO; +LEVE-5 PO; +METO-336 PO; -METO100T13 PO; -NORC 5-325 PO; -SMV40T PO; +VENL150C94 PO
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
[2018-05-30] MEDS ORDERED: GABA300C16 PO (18:36)
[2018-05-30] MEDS ORDERED: VENL150C94 PO (18:37)
[2018-05-30] MEDS ORDERED: LEVE10006 PO (18:38)
[2018-05-30] MEDS ORDERED: LORA1TAB PO (18:39)
[2018-05-30] MEDS ORDERED: ATOR40TA68 PO (18:39)
[2018-05-30] MEDS ORDERED: LEVO88TA3 PO (18:40)
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
[2018-05-30] MEDS ORDERED: CIPROFLOXACIN 500 MG TAB PO ONE (22:30)
[2018-05-30] MEDS ORDERED: CEFTRIAXONE 1 GM INJ IM ONE (23:00)
[2018-05-31] MEDS ORDERED: METOPROLOL 25 MG TAB ONE (06:22)
[2018-05-31] MEDS ORDERED: METOPROLOL 25 MG TAB PO ONE (06:30)
[2018-05-31 07:58] VITALS: BP 128/63; PULSE 74; RESP 18
== END 2018-05-31 08:31 ==
LOC: E/R 17:28
DX: R44.1 Visual hallucinations (principal); R40.2142 Coma scale, eyes open, spontaneous, at arrival to emergency department; R40.2362 Coma scale, best motor response, obeys commands, at arrival to emergency department; R40.2252 Coma scale, best verbal response, oriented, at arrival to emergency department; E86.0 Dehydration; E03.9 Hypothyroidism, unspecified; I10 Essential (primary) hypertension
CPT/HCPCS: 36415; 80053; 80307; 81001; 85025; 96372; 99285; J0696